=== PATIENT | female | born 1960 | race African-American/Black ===

== ENCOUNTER 2022-09-19 12:20 | Emergency (ER) | payer MEDICAID, SELFPAY ==
[~2022-09-19 12:20] MED LIST: Iopamidol-370 76% 500 ML 1 ML ONE
[2022-09-19 13:22] LABS: Hemoglobin 13.9 g/dL (12.0-16.0); Mean Corpuscular HGB CONC 33.9 g/dL (32.0-36.0); Mean Corpuscular Hemoglobin 32.7 pg (27.0-31.0); Mean Corpuscular Volume 96.2 fl (78.0-98.0); Mean Platelet Volume 6.7 fL (7.4-10.4); Platelet Count 353 10x3/uL (130-400); RBC Distribution Width 11.6 % (11.5-14.5); Red Blood Cell (RBC) Count 4.25 mill/uL (4.20-5.40)
[2022-09-19 13:36] LABS: ALT (SGPT) 20 U/L (8-55); AST (SGOT) 20 U/L (5-34); Albumin 4.4 g/dL (3.5-5.0); Alkaline Phosphatase 59 U/L (40-110); Anion Gap 14 mmol/L (10-20); BUN (Urea Nitrogen) 11 mg/dL (9.8-20.1); Bilirubin, Total 0.6 mg/dL (0.2-1.2); Calc. Creatinine Clearance 0 mL/min (70-130); Calcium 9.7 mg/dL (7.8-10.44); Carbon Dioxide 24 mmol/L (22-29); Chloride 105 mmol/L (98-107); Estimated GFR 76; Globulin 2.4 g/dL (2.4-3.5); Glucose 154 mg/dL (70-105); Lipase 14 U/L (8-78); Potassium 3.6 mmol/L (3.5-5.1); Protein, Total 6.8 g/dL (6.0-8.3); Sodium 139 mmol/L (136-145)
[2022-09-19 13:38] LABS: Band 2 % (5-11); Lymphocytes 5 % (21-51); MDiff Complete? YES; Monocytes 3 % (0-10); Neutrophil 85 % (42-75); Platelet Morphology Comment Appears Adequate; Polychromasia SLIGHT = 2-3 cells (100X) (0-2/hpf); Reactive Lymphocytes 5 % (0-10); Small Platelets SLIGHT
[2022-09-19] MEDS ORDERED: Mag-Al 1200 mg/1200 mg/30 ML UDCUP ONE (16:23)
[2022-09-19] MEDS ORDERED: Ketorolac Tromethamine 30 MG/ML VIAL ONE (16:23)
[2022-09-19] MEDS ORDERED: Morphine 4 MG/ML VIAL ONE (16:23)
[2022-09-19] MEDS ORDERED: Lidocaine Viscous Sol 2% 15 ml UD Cup ONE (16:23)
[2022-09-19] MEDS ORDERED: Ondansetron PF 4 MG/2 ML Vial ONE (16:23)
[2022-09-19] MEDS ORDERED: Famotidine/PF 20 mg/2ml Vial ONE (17:24)
== END 2022-09-19 21:15 | disposition home or self-care (01) ==
LOC: ERS 12:20
DX: R10.13 Epigastric pain (principal); I10 Essential (primary) hypertension; D72.829 Elevated white blood cell count, unspecified; R11.2 Nausea with vomiting, unspecified
CPT/HCPCS: 36415; 71045; 74177; 76705; 80053; 83605; 83690; 84484; 85025; 93005; 96361; 96374; 96375; J1885; J2270; J2405; Q9967; S0028